=== PATIENT | male | born 1925 | race Caucasian/White ===

== ENCOUNTER 2016-06-11 10:04 | Emergency (ER) | payer MEDICARE, BC ==
[2016-06-11 10:18] VITALS: RESP 18
[2016-06-11] MEDS ORDERED: SODIUM CHLORIDE 0.9% 500 ML IV STA (11:26)
[2016-06-11] MEDS ORDERED: ONDANSETRON 4 MG/2 ML VIAL IVP STA (11:26)
[2016-06-11] MEDS ORDERED: PANTOPRAZOLE 40 MG/10 ML VIAL IVP STA (11:26)
--- NOTE | 2016-06-11 12:19 | ED ---
General Adult HPI - General Chief complaint: Allergic Reaction Stated complaint: Med Reaction Time Seen by Provider: 06/11/16 10:38 Source: patient, RN notes reviewed, old records reviewed Mode of arrival: EMS Limitations: no limitations - History of Present Illness Initial comments: This is a 89-year-old male with a ER for evaluation today. This patient presents for evaluation of nonspecific complaints, multiple complaints regarding the possible medication reaction, just a redundant medication last night into today. She feels lightheaded dizzy weak, flushed. As well as having numbness and tingling. Patient was switched to take hydralazine for blood pressure, denies chest pain or shortness of breath. - Related Data Home Medications Medication Instructions Recorded Confirmed Aspirin 81 mg PO DAILY 04/28/14 06/11/16 Hydrochlorothiazide 25 mg PO DAILY 04/28/14 06/11/16 Lisinopril [Prinivil] 20 mg PO BID 04/28/14 06/11/16 Metoprolol Tartrate 25 mg PO BID 04/28/14 06/11/16 Simvastatin [Zocor] 40 mg PO HS 04/28/14 06/11/16 Tamsulosin [Flomax] 0.4 mg PO HS 04/28/14 06/11/16 cloNIDine HCL [Catapres] 0.1 mg PO BID PRN 04/28/14 06/11/16 Vit C/E/Zn/Coppr/Lutein/Zeaxan 1 cap PO BID 03/03/16 06/11/16 [Preservision Areds 2 Softgel] Allergies Allergy/AdvReac Type Severity Reaction Status Date / Time amlodipine Allergy Swelling Verified 06/11/16 10:42 hydralazine Allergy Swelling Verified 06/11/16 10:42 Review of Systems ROS Statement: Those systems with pertinent positive or pertinent negative responses have been documented in the HPI. ROS Other: All systems not noted in ROS Statement are negative. Past Medical History Past Medical History: Hypertension, Myocardial Infarction ([place]) Additional Past Medical History / Comment(s): blood clot right leg, right ileac aneurysm, peripheral vascular disease History of Any Multi-Drug Resistant Organisms: None Reported Past Surgical History: Heart Catheterization With Stent Additional Past Surgical History / Comment(s): ileac aneurysm, Past Psychological History: No Psychological Hx Reported Smoking Status: Former smoker Past Alcohol Use History: Occasional Past Drug Use History: None Reported General Exam Limitations: no limitations General appearance: alert, in no apparent distress Head exam: Present: atraumatic, normocephalic, normal inspection Eye exam: Present: normal appearance, PERRL, EOMI. Absent: scleral icterus, conjunctival injection, periorbital swelling ENT exam: Present: normal exam, mucous membranes moist Neck exam: Present: normal inspection. Absent: tenderness, meningismus, lymphadenopathy Respiratory exam: Present: normal lung sounds bilaterally. Absent: respiratory distress, wheezes, rales, rhonchi, stridor Cardiovascular Exam: Present: regular rate, normal rhythm, normal heart sounds. Absent: systolic murmur, diastolic murmur, rubs, gallop, clicks GI/Abdominal exam: Present: soft, normal bowel sounds. Absent: distended, tenderness, guarding, rebound, rigid Extremities exam: Present: normal inspection, full ROM, normal capillary refill. Absent: tenderness, pedal edema, joint swelling, calf tenderness Back exam: Present: normal inspection Neurological exam: Present: alert, oriented X3, CN II-XII intact Psychiatric exam: Present: normal affect, normal mood Skin exam: Present: warm, dry, intact, normal color. Absent: rash Course Vital Signs 06/11/16 10:15 Temperature 98.0 F Pulse Rate 74 Respiratory 18 Rate Blood Pressure 129/63 O2 Sat by Pulse 96 Oximetry - Reevaluation(s) Reevaluation #1: 06/11/16 12:19 Family spoken with regarding medication possible recurrent reactions or adverse effects EKG Findings - EKG Comments: EKG Findings:: EKG shows normal sinus rhythm rate of 77, MN 132, QRS 80, QTC 443 Medical Decision Making - Medical Decision Making 89 male the ear with nonspecific symptoms probable medication reaction level coming back normal EKG is normal, patient will discontinue medication to follow- up with Dr. Almanzar Disposition Clinical Impression: Adverse reaction to drug, Medication reaction Disposition: HOME SELF-CARE Condition: Good Instructions: Hydralazine (By mouth) Referrals: Prem Almanzar MD [Primary Care Provider] - 1-2 days
[2016-06-11 12:25] LABS: Basophils % (A) 0 %; CH 31.5; CHCM 34.1; Eosinophils # (A) 0.1 k/uL (0-0.7); Eosinophils % (A) 1 %; HCT 42.5 % (39.0-53.0); HDW 2.45; HGB 14.5 gm/dL (13.0-17.5); Luc # (Auto) 0.18; Luc % (Auto) 2; Lymphocytes # (A) 0.8 k/uL (1.0-4.8); Lymphocytes % (A) 7 %; MCH 31.7 pg (25.0-35.0); MCHC 34.2 g/dL (31.0-37.0); MCV 92.9 fL (80.0-100.0); Mean Platelet Volume 6.6; Monocytes # (A) 0.7 k/uL (0-1.0); Monocytes % (A) 6 %; Neutrophils # (A) 9.5 k/uL (1.3-7.7); Neutrophils % (A) 85 %; RBC 4.58 m/uL (4.30-5.90); WBC 11.2 k/uL (3.8-10.6); WBC (Perox) 11.41
[2016-06-11 12:41] LABS: ALT 26 U/L (21-72); AST 23 U/L (17-59); Alkaline Phosphatase 73 U/L (38-126); Anion Gap 10 mmol/L; Blood Urea Nitrogen 26 mg/dL (9-20); Calcium 9.2 mg/dL (8.4-10.2); Carbon Dioxide 26 mmol/L (22-30); Chloride 100 mmol/L (98-107); Glucose 133 mg/dL (74-99); Non-African American GFR(MDRD) >60 (>60 ml/min/1.73 sqM); Phosphorous 2.6 mg/dL (2.5-4.5); Potassium 4.2 mmol/L (3.5-5.1); Sodium 136 mmol/L (137-145); Total Bilirubin 0.8 mg/dL (0.2-1.3); Total Protein 7.3 g/dL (6.3-8.2)
[2016-06-11 12:49] LABS: Creatine Kinase 88 U/L (55-170)
[2016-06-11 13:01] LABS: Creatine Kinase MB 0.8 ng/mL (0.0-2.4); Troponin I <0.012 ng/mL (0.000-0.034)
[2016-06-11 13:17] VITALS: BP 147/68; PULSE 81; TEMP 98.4
== END 2016-06-11 13:17 | disposition home or self-care (01) ==
LOC: EC 10:04
DX: R42 Dizziness and giddiness (principal); R53.1 Weakness; R20.0 Anesthesia of skin; R20.2 Paresthesia of skin; T50.905A Adverse effect of unspecified drugs, medicaments and biological substances, initial encounter; I25.2 Old myocardial infarction; I10 Essential (primary) hypertension; Z87.891 Personal history of nicotine dependence; Z79.82 Long term (current) use of aspirin; Z79.899 Other long term (current) drug therapy; Z88.8 Allergy status to other drugs, medicaments and biological substances; Z95.5 Presence of coronary angioplasty implant and graft
CPT/HCPCS: 99284; 96374; 96375; 36415; 93005; 80053; 82550; 82553; 83735; 84100; 84484; 85025; J2405; C9113

== ENCOUNTER 2016-09-03 20:31 | Emergency (ER) | payer MEDICARE, BC ==
[2016-09-03] MEDS ORDERED: SODIUM CHLORIDE 0.9% 500 ML IV STA (21:08)
[2016-09-03] MEDS ORDERED: LABETALOL 5 MG/ML VIAL MDV IVP STA (21:09)
--- NOTE | 2016-09-03 21:24 | ED ---
General Adult HPI - General Chief complaint: Recheck/Abnormal Lab/Rx Stated complaint: Hypertension Time Seen by Provider: 09/03/16 20:43 Source: patient, RN notes reviewed, old records reviewed Mode of arrival: ambulatory Limitations: no limitations - History of Present Illness Initial comments: This is an 82-year-old male to the ER for evaluation. This patient presents for evaluation of elevated blood pressure. Asymptomatic hypertension. Patient monitors his blood pressure very strictly, as noted in the last 2 days has been elevated, he did see his primary care doctor earlier today and he had normal blood pressure at the time he did increase his clonidine dose. Patient again denies any complaints this time when he took his blood pressure before better was severely elevated greater than 200 systolic. Again patient remains asymptomatic - Related Data Home Medications Medication Instructions Recorded Confirmed Aspirin 81 mg PO HS 04/28/14 09/03/16 Hydrochlorothiazide 25 mg PO DAILY 04/28/14 09/03/16 Lisinopril [Prinivil] 20 mg PO BID 04/28/14 09/03/16 Metoprolol Tartrate 25 mg PO BID 04/28/14 09/03/16 Simvastatin [Zocor] 40 mg PO HS 04/28/14 09/03/16 Tamsulosin [Flomax] 0.4 mg PO HS 04/28/14 09/03/16 cloNIDine HCL [Catapres] 0.1 mg PO BID 04/28/14 09/03/16 Vit C/E/Zn/Coppr/Lutein/Zeaxan 1 cap PO BID 03/03/16 09/03/16 [Preservision Areds 2 Softgel] Labetalol [Trandate] 100 mg PO BID 09/03/16 09/03/16 Allergies Allergy/AdvReac Type Severity Reaction Status Date / Time amlodipine Allergy WEAKNESS Verified 09/03/16 21:07 hydralazine Allergy WEAKNESS Verified 09/03/16 21:07 Review of Systems ROS Statement: Those systems with pertinent positive or pertinent negative responses have been documented in the HPI. ROS Other: All systems not noted in ROS Statement are negative. Past Medical History Past Medical History: Hypertension, Myocardial Infarction ([place]) Additional Past Medical History / Comment(s): blood clot right leg, right ileac aneurysm, peripheral vascular disease History of Any Multi-Drug Resistant Organisms: None Reported Past Surgical History: Heart Catheterization With Stent Additional Past Surgical History / Comment(s): ileac aneurysm, Past Psychological History: No Psychological Hx Reported Smoking Status: Former smoker Past Alcohol Use History: Occasional Past Drug Use History: None Reported General Exam Limitations: no limitations General appearance: alert, in no apparent distress Head exam: Present: atraumatic, normocephalic, normal inspection Eye exam: Present: normal appearance, PERRL, EOMI. Absent: scleral icterus, conjunctival injection, periorbital swelling ENT exam: Present: normal exam, mucous membranes moist Neck exam: Present: normal inspection. Absent: tenderness, meningismus, lymphadenopathy Respiratory exam: Present: normal lung sounds bilaterally. Absent: respiratory distress, wheezes, rales, rhonchi, stridor Cardiovascular Exam: Present: regular rate, normal rhythm, normal heart sounds. Absent: systolic murmur, diastolic murmur, rubs, gallop, clicks GI/Abdominal exam: Present: soft, normal bowel sounds. Absent: distended, tenderness, guarding, rebound, rigid Extremities exam: Present: normal inspection, full ROM, normal capillary refill. Absent: tenderness, pedal edema, joint swelling, calf tenderness Back exam: Present: normal inspection Neurological exam: Present: alert, oriented X3, CN II-XII intact Psychiatric exam: Present: normal affect, normal mood Skin exam: Present: warm, dry, intact, normal color. Absent: rash Course Vital Signs 09/03/16 09/03/16 09/03/16 20:34 21:30 21:54 Temperature 97.8 F 97.5 F L Pulse Rate 74 70 Respiratory 18 18 Rate Blood Pressure 215/129 198/94 Blood Pressure 172/93 [Left Arm] O2 Sat by Pulse 96 96 Oximetry - Reevaluation(s) Reevaluation #1: 09/03/16 23:32 mild improvement in blood pressure Medical Decision Making - Medical Decision Making Alleviated no the ear with asymptomatic high blood pressure, hypertension, blood pressure this point is relatively improved. Patient will be discharged home - Lab Data Result diagrams: 09/03/16 19:39 09/03/16 19:39 Lab Results 09/03/16 09/03/16 09/03/16 Range/Units 19:39 19:39 19:39 WBC 8.7 (3.8-10.6) k/uL RBC 4.70 (4.30-5.90) m/uL Hgb 14.6 (13.0-17.5) gm/dL Hct 43.0 (39.0-53.0) % MCV 91.4 (80.0-100.0) fL MCH 31.0 (25.0-35.0) pg MCHC 33.9 (31.0-37.0) g/dL RDW 12.8 (11.5-15.5) % Plt Count 203 (150-450) k/uL Neutrophils % 63 % Lymphocytes % 20 % Monocytes % 10 % Eosinophils % 3 % Basophils % 0 % Neutrophils # 5.5 (1.3-7.7) k/uL Lymphocytes # 1.7 (1.0-4.8) k/uL Monocytes # 0.9 (0-1.0) k/uL Eosinophils # 0.2 (0-0.7) k/uL Basophils # 0.0 (0-0.2) k/uL PT (9.0-12.0) sec INR (<1.1) APTT (22.0-30.0) sec Sodium 138 (137-145) mmol/L Potassium 4.2 (3.5-5.1) mmol/L Chloride 99 (98-107) mmol/L Carbon Dioxide 28 (22-30) mmol/L Anion Gap 11 mmol/L BUN 25 H (9-20) mg/dL Creatinine 1.26 H (0.66-1.25) mg/dL Est GFR (MDRD) Af Amer >60 (>60 ml/min/1.73 sqM) Est GFR (MDRD) Non-Af 54 (>60 ml/min/1.73 sqM) Glucose 115 H (74-99) mg/dL Calcium 9.0 (8.4-10.2) mg/dL Phosphorus 3.1 (2.5-4.5) mg/dL Magnesium 1.9 (1.6-2.3) mg/dL Total Bilirubin 0.5 (0.2-1.3) mg/dL AST 28 (17-59) U/L ALT 32 (21-72) U/L Alkaline Phosphatase 74 (38-126) U/L Total Creatine Kinase 129 (55-170) U/L CK-MB (CK-2) 1.4 (0.0-2.4) ng/mL CK-MB (CK-2) Rel Index 1.1 Troponin I <0.012 (0.000-0.034) ng/mL Total Protein 7.3 (6.3-8.2) g/dL Albumin 4.1 (3.5-5.0) g/dL 09/03/16 Range/Units 19:39 WBC (3.8-10.6) k/uL RBC (4.30-5.90) m/uL Hgb (13.0-17.5) gm/dL Hct (39.0-53.0) % MCV (80.0-100.0) fL MCH (25.0-35.0) pg MCHC (31.0-37.0) g/dL RDW (11.5-15.5) % Plt Count (150-450) k/uL Neutrophils % % Lymphocytes % % Monocytes % % Eosinophils % % Basophils % % Neutrophils # (1.3-7.7) k/uL Lymphocytes # (1.0-4.8) k/uL Monocytes # (0-1.0) k/uL Eosinophils # (0-0.7) k/uL Basophils # (0-0.2) k/uL PT 11.0 (9.0-12.0) sec INR 1.1 (<1.1) APTT 24.0 (22.0-30.0) sec Sodium (137-145) mmol/L Potassium (3.5-5.1) mmol/L Chloride (98-107) mmol/L Carbon Dioxide (22-30) mmol/L Anion Gap mmol/L BUN (9-20) mg/dL Creatinine (0.66-1.25) mg/dL Est GFR (MDRD) Af Amer (>60 ml/min/1.73 sqM) Est GFR (MDRD) Non-Af (>60 ml/min/1.73 sqM) Glucose (74-99) mg/dL Calcium (8.4-10.2) mg/dL Phosphorus (2.5-4.5) mg/dL Magnesium (1.6-2.3) mg/dL Total Bilirubin (0.2-1.3) mg/dL AST (17-59) U/L ALT (21-72) U/L Alkaline Phosphatase (38-126) U/L Total Creatine Kinase (55-170) U/L CK-MB (CK-2) (0.0-2.4) ng/mL CK-MB (CK-2) Rel Index Troponin I (0.000-0.034) ng/mL Total Protein (6.3-8.2) g/dL Albumin (3.5-5.0) g/dL Disposition Clinical Impression: Hypertension Disposition: HOME SELF-CARE Condition: Good Instructions: Hypertension (ED) Referrals: Prem Almanzar MD [Primary Care Provider] - 1-2 days
[2016-09-03 21:53] LABS: Basophils % (A) 0 %; CH 31.7; CHCM 34.9; Eosinophils # (A) 0.2 k/uL (0-0.7); Eosinophils % (A) 3 %; HDW 2.34; HGB 14.6 gm/dL (13.0-17.5); Luc % (Auto) 3; Lymphocytes # (A) 1.7 k/uL (1.0-4.8); Lymphocytes % (A) 20 %; MCHC 33.9 g/dL (31.0-37.0); MCV 91.4 fL (80.0-100.0); Mean Platelet Volume 6.6; Monocytes # (A) 0.9 k/uL (0-1.0); Monocytes % (A) 10 %; Neutrophils # (A) 5.5 k/uL (1.3-7.7); Neutrophils % (A) 63 %; RDW 12.8 % (11.5-15.5); WBC 8.7 k/uL (3.8-10.6); WBC (Perox) 7.88
[2016-09-03 22:00] LABS: ALT 32 U/L (21-72); AST 28 U/L (17-59); Alkaline Phosphatase 74 U/L (38-126); Anion Gap 11 mmol/L; Blood Urea Nitrogen 25 mg/dL (9-20); Carbon Dioxide 28 mmol/L (22-30); Chloride 99 mmol/L (98-107); Glucose 115 mg/dL (74-99); Magnesium 1.9 mg/dL (1.6-2.3); Non-African American GFR(MDRD) 54 (>60 ml/min/1.73 sqM); Phosphorous 3.1 mg/dL (2.5-4.5); Potassium 4.2 mmol/L (3.5-5.1); Sodium 138 mmol/L (137-145); Total Bilirubin 0.5 mg/dL (0.2-1.3); Total Protein 7.3 g/dL (6.3-8.2)
[2016-09-03 22:01] LABS: INR 1.1 (<1.1)
[2016-09-03 22:25] LABS: Creatine Kinase 129 U/L (55-170)
[2016-09-03] MEDS ORDERED: hydrALAZINE HCL 20 MG/ML 1 ML VIAL IVP STA (22:32)
[2016-09-03 22:37] LABS: Creatine Kinase MB 1.4 ng/mL (0.0-2.4); Troponin I <0.012 ng/mL (0.000-0.034)
[2016-09-04 00:14] VITALS: BP 179/92; PULSE 69; RESP 16; TEMP 97.8
== END 2016-09-04 00:14 | disposition home or self-care (01) ==
LOC: EC 20:31
DX: I10 Essential (primary) hypertension (principal); I25.2 Old myocardial infarction; Z53.20 Procedure and treatment not carried out because of patient's decision for unspecified reasons; Z87.891 Personal history of nicotine dependence; Z79.82 Long term (current) use of aspirin; Z79.899 Other long term (current) drug therapy; Z88.8 Allergy status to other drugs, medicaments and biological substances; Z95.5 Presence of coronary angioplasty implant and graft
CPT/HCPCS: 36415; 80053; 82550; 82553; 83735; 84100; 84484; 85025; 85610; 85730; 93005; 96361; 96374; 99284

== ENCOUNTER 2016-09-04 21:14 | Emergency (ER) | payer MEDICARE, BC ==
[2016-09-04] MEDS ORDERED: LABETALOL 5 MG/ML VIAL MDV IVP STA (21:34)
--- NOTE | 2016-09-04 21:38 | ED ---
General Adult HPI - General Chief complaint: Recheck/Abnormal Lab/Rx Stated complaint: HBP Time Seen by Provider: 09/04/16 21:33 Source: patient, RN notes reviewed, old records reviewed Mode of arrival: ambulatory Limitations: no limitations - History of Present Illness Initial comments: This is a 82-year-old male the ER for evaluation. Patient with evaluation of high blood pressure. History of 5 blood pressure, chronic history of high blood pressure issues and blood pressure control problems. Patient was in ER for symptoms same issues last night. And patient has done multiple outpatient medication dosages the last 2 days with minimal improvement. Again patient remains asymptomatic, took his blood pressure home which was 190/98 - Related Data Home Medications Medication Instructions Recorded Confirmed Aspirin 81 mg PO HS 04/28/14 09/03/16 Hydrochlorothiazide 25 mg PO DAILY 04/28/14 09/03/16 Lisinopril [Prinivil] 20 mg PO BID 04/28/14 09/03/16 Metoprolol Tartrate 25 mg PO BID 04/28/14 09/03/16 Simvastatin [Zocor] 40 mg PO HS 04/28/14 09/03/16 Tamsulosin [Flomax] 0.4 mg PO HS 04/28/14 09/03/16 cloNIDine HCL [Catapres] 0.1 mg PO BID 04/28/14 09/03/16 Vit C/E/Zn/Coppr/Lutein/Zeaxan 1 cap PO BID 03/03/16 09/03/16 [Preservision Areds 2 Softgel] Labetalol [Trandate] 100 mg PO BID 09/03/16 09/03/16 Allergies Allergy/AdvReac Type Severity Reaction Status Date / Time amlodipine Allergy WEAKNESS Verified 09/04/16 21:29 hydralazine Allergy WEAKNESS Verified 09/04/16 21:29 Review of Systems ROS Statement: Those systems with pertinent positive or pertinent negative responses have been documented in the HPI. ROS Other: All systems not noted in ROS Statement are negative. Past Medical History Past Medical History: Hypertension, Myocardial Infarction ([place]) Additional Past Medical History / Comment(s): blood clot right leg, right ileac aneurysm, peripheral vascular disease History of Any Multi-Drug Resistant Organisms: None Reported Past Surgical History: Heart Catheterization With Stent Additional Past Surgical History / Comment(s): ileac aneurysm, Past Psychological History: No Psychological Hx Reported Smoking Status: Former smoker Past Alcohol Use History: Occasional Past Drug Use History: None Reported General Exam Limitations: no limitations General appearance: alert, in no apparent distress Head exam: Present: atraumatic, normocephalic, normal inspection Eye exam: Present: normal appearance, PERRL, EOMI. Absent: scleral icterus, conjunctival injection, periorbital swelling ENT exam: Present: normal exam, mucous membranes moist Neck exam: Present: normal inspection. Absent: tenderness, meningismus, lymphadenopathy Respiratory exam: Present: normal lung sounds bilaterally. Absent: respiratory distress, wheezes, rales, rhonchi, stridor Cardiovascular Exam: Present: regular rate, normal rhythm, normal heart sounds. Absent: systolic murmur, diastolic murmur, rubs, gallop, clicks GI/Abdominal exam: Present: soft, normal bowel sounds. Absent: distended, tenderness, guarding, rebound, rigid Extremities exam: Present: normal inspection, full ROM, normal capillary refill. Absent: tenderness, pedal edema, joint swelling, calf tenderness Back exam: Present: normal inspection Neurological exam: Present: alert, oriented X3, CN II-XII intact Psychiatric exam: Present: normal affect, normal mood Skin exam: Present: warm, dry, intact, normal color. Absent: rash Course Vital Signs 09/04/16 09/04/16 21:26 22:03 Temperature 97.3 F L Pulse Rate 72 59 L Respiratory 20 18 Rate Blood Pressure 211/99 175/86 O2 Sat by Pulse 97 94 L Oximetry - Reevaluation(s) Reevaluation #1: 09/04/16 22:13 Patient remains asymptomatic, in light of no symptoms, we will give patient a clonidine patch and continue home management EKG Findings - EKG Comments: EKG Findings:: EKG shows normal sinus rhythm rate of 60, AR 152, QRS 86, QTC 426 Medical Decision Making - Medical Decision Making 89 male to the ED for evaluation of blood pressure control, patient will be discharged home, follow-up with Dr. Almanzar Disposition Clinical Impression: Hypertension Disposition: HOME SELF-CARE Condition: Good Instructions: Hypertension (ED) Referrals: Prem Almanzar MD [Primary Care Provider] - 1-2 days
[2016-09-04 22:05] VITALS: RESP 18
[2016-09-04] MEDS ORDERED: cloNIDine 0.3 MG/24HR PATCH 1 PATCH PATCH TRANSDERM SCH (23:00)
[2016-09-04 23:08] VITALS: BP 168/91; PULSE 63; TEMP 97.7
== END 2016-09-04 23:08 | disposition home or self-care (01) ==
LOC: EC 21:14
DX: I10 Essential (primary) hypertension (principal); I25.2 Old myocardial infarction; Z87.891 Personal history of nicotine dependence; Z79.82 Long term (current) use of aspirin; Z79.899 Other long term (current) drug therapy; Z88.8 Allergy status to other drugs, medicaments and biological substances
CPT/HCPCS: 93005; 99284

== ENCOUNTER → 2016-09-10 | Outpatient (CLI) | payer MEDICARE, BC ==
--- NOTE | 2016-09-10 10:00 | US ---
EXAMINATION TYPE: US renal artery duplex complet DATE OF EXAM: 09/10/2016 COMPARISON: CT CLINICAL HISTORY: Urgent Essential Primary Hyeprtension I10. HTN for 50 years, uncontrolled since Feb. MEASUREMENTS: RENAL SIZE: Rt Kidney: 11.8 x 5.2 x 5.2cm Lt Kidney: 10.4 x 5.6 x 5.1 cm RESISTANCE INDEX Right: 0.62 Left: 0.65 RA/AO RATIO (< 3.5 ) Right: 3.1 Left: 2.3 RA VELOCITY ( < 180 cm/s) Right: 171 Left: 127 Multiple aortic/iliac stents, bilateral renal cysts. NO evidence for renal artery stenosis per ultras ound criteria. Good upstroke on segmentals at renal hilum. Low resistive waveforms seen throughout. IMPRESSION: 1. No diagnostic evidence of renal artery stenosis. 2. Postsurgical change involving the aorta. 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
== END | disposition home or self-care (01) ==
LOC: RADUSMAIN 08:44
PROVIDERS: ATTEND Internal Medicine Geriatric Medicine
DX: I10 Essential (primary) hypertension (principal); Z98.890 Other specified postprocedural states
CPT/HCPCS: 93975